=== PATIENT | male | born 1945 ===

== ENCOUNTER 2025-09-20 08:30 | Inpatient (IN) | payer OTHER ==
[~2025-09-20] VITALS: Ht 167.6 cm; Wt 67.1 kg
[2025-09-20] MEDS ORDERED: TRADJENTA5 MG (11:52)
[2025-09-20] MEDS ORDERED: CARVEDILOL ER40 MG (11:52)
[2025-09-26] MEDS ORDERED: HEMOSTATIC MATRIX 1 KIT KIT TOP ONE (09:46)
[2025-09-26] MEDS ORDERED: POVIDONE-IODINE 118 ML BOTT TOP ONE (09:46)
[2025-09-26] MEDS ORDERED: DIBUCAINE 30 GM TUBE ONE (09:46)
[2025-09-26] MEDS ORDERED: CEFTRIAXONE SODIUM 2,000 MG VIAL ONE (09:47)
[2025-09-26] MEDS ORDERED: LIDOCAINE HCL 1%/EPINEPHRINE 20ML VIAL IJ ONE (09:47)
[2025-09-26] MEDS ORDERED: BUPIVACAINE HCL/MPF 0.5% 30ML VIAL ONE (09:47)
[2025-09-26] MEDS ORDERED: METRONIDAZOLE/SODIUM CHLORIDE 500 MG/100 ML PIGGYBACK IV ONE ×2 (09:47→14:41)
[2025-09-26] MEDS ORDERED: CIPROFLOXACIN IN 5 % DEXTROSE 400 MG/200 ML PIGGYBAG IV SCH (11:17)
[2025-09-26] MEDS ORDERED: METRONIDAZOLE/SODIUM CHLORIDE 500 MG/100 ML PIGGYBACK IV SCH (11:17)
[2025-09-26] MEDS ORDERED: OxyCODONE HCL 5 MG TABLET (ROXICODONE) PO PRN (11:30)
[2025-09-26] MEDS ORDERED: 0.9 % SODIUM CHLORIDE 1,000 ML IV SCH (11:30)
[2025-09-26] MEDS ORDERED: ONDANSETRON HCL 2 MG/ML VIAL IV PRN (11:30)
[2025-09-26] MEDS ORDERED: DEXTROSE 50 % IN WATER 0.5 G/ML DISP.SYRIN IV PRN ×2 (11:30→13:30)
[2025-09-26] MEDS ORDERED: MORPHINE SULFATE 4 MG/ML VIAL IV PRN (11:30)
[2025-09-26] MEDS ORDERED: HYOSCYAMINE SULFATE 0.125 MG TAB.SUBL SL SCH (13:00)
[2025-09-26] MEDS ORDERED: INSULIN LISPRO 1,000 UNIT/10 ML UNITS SUBCUTANEO PRN (13:30)
[2025-09-26] MEDS ORDERED: hydrALAZINE HCL 20 MG VIAL IV PRN (13:30)
[2025-09-26] MEDS ORDERED: ACETAMINOPHEN 500 MG GEL..CAP PO SCH (14:00)
[2025-09-26] MEDS ORDERED: CIPROFLOXACIN IN 5 % DEXTROSE 400 MG/200 ML PIGGYBAG IV ONE (14:41)
[2025-09-26 15:00] VITALS: BP 139/93; O2SAT 98
[2025-09-26 15:29] LABS: BASO % 0.3 % (0.1-1.2); EOS # 0.04 (0.04-0.54); EOS % 1.0 % (0.7-7.0); LYMPH # 0.76 (1.18-3.74); LYMPH % 19.3 % (19.3-53.1); MEAN PLATELET VOLUME 12.00 fl (9.4-12.4); MONO # 0.35 (0.24-0.82); MONO % 8.9 % (4.7-12.5); NEUT # 2.76 (1.56-6.13); NEUT % 70.2 % (34.0-71.1); RED CELL DISTRIBUTION WIDTH 12.7 % (11.6-14.4)
[2025-09-26] MEDS ORDERED: INSULIN LISPRO 1,000 UNIT/10 ML UNITS SUBCUTANEO ONE (15:51)
[2025-09-26 15:56] LABS: BUN CREA RATIO 14.0 (7.0-25.0); CREATININE SERUM 1.9 mg/dL (0.70-1.30); GFR 34.28; OSMOLALITY SERUM 291.0 MOSM/KG (275-295)
[2025-09-26 16:03] LABS: GLUCOSE FASTING 254.0 mg/dL (65-100)
[2025-09-26] MEDS ORDERED: GABAPENTIN 300 MG CAPSULE PO SCH (17:00)
[2025-09-26] MEDS ORDERED: CARVEDILOL 25 MG TABLET PO SCH (21:00)
[2025-09-26] MEDS ORDERED: CELECOXIB 200 MG CAPSULE PO SCH (21:00)
[2025-09-26] MEDS ORDERED: FAMOTIDINE/PF 20 MG/2 ML VIAL IV PUSH SCH (21:00)
[2025-09-27 00:49] VITALS: BP 132/57; BP 142/88; O2SAT 96; O2SAT 98
[2025-09-27 06:52] LABS: BUN CREA RATIO 13.0 (7.0-25.0); CREATININE SERUM 2.02 mg/dL (0.70-1.30); GFR 31.94; GLUCOSE FASTING 146.0 mg/dL (65-100); OSMOLALITY SERUM 292.0 MOSM/KG (275-295)
[2025-09-27 07:26] LABS: BASO % 0.3 % (0.1-1.2); EOS # 0.07 (0.04-0.54); EOS % 1.0 % (0.7-7.0); LYMPH # 0.88 (1.18-3.74); LYMPH % 12.5 % (19.3-53.1); MEAN PLATELET VOLUME 12.10 fl (9.4-12.4); MONO # 0.94 (0.24-0.82); MONO % 13.3 % (4.7-12.5); NEUT # 5.12 (1.56-6.13); NEUT % 72.6 % (34.0-71.1); RED CELL DISTRIBUTION WIDTH 12.8 % (11.6-14.4)
[2025-09-27 08:30] VITALS: BP 125/55; O2SAT 96
[2025-09-27] MEDS ORDERED: RECTICARE30 GM TOP (12:20)
[2025-09-27] MEDS ORDERED: TRAM1TAB98 PO (12:20)
[2025-09-27] MEDS ORDERED: ENOXAPARIN SODIUM 40 MG/0.4 ML SYRINGE SUBCUTANEO SCH (17:00)
[2025-09-27] MEDS ORDERED: ENOXAPARIN SODIUM 30 MG/0.3 ML SYRINGE SUBCUTANEO SCH (17:00)
[2025-09-28] MEDS ORDERED: ENOXAPARIN SODIUM 30 MG/0.3 ML SYRINGE SUBCUTANEO SCH (09:00)
[2025-09-28] MEDS ORDERED: ENOXAPARIN SODIUM 40 MG/0.4 ML SYRINGE SUBCUTANEO SCH (09:00)
== END 2025-09-27 14:41 | disposition home or self-care (01) | DRG 376 ==
LOC: O/R 09-26 08:13 → SURH 09-26 08:30
PROVIDERS: ADMIT Surgery; ATTEND Surgery
PROC: 0DJD8ZZ Inspection of Lower Intestinal Tract, Via Natural or Artificial Opening Endoscopic (ICD-10-PCS; 2025-09-26)
PROC: 3E0T3BZ Introduction of Anesthetic Agent into Peripheral Nerves and Plexi, Percutaneous Approach (ICD-10-PCS; 2025-09-26)
PROC: 0DBP8ZZ Excision of Rectum, Via Natural or Artificial Opening Endoscopic (ICD-10-PCS; principal; 2025-09-26 12:30)
DX: C20 Malignant neoplasm of rectum (principal); R19.4 Change in bowel habit; I11.9 Hypertensive heart disease without heart failure; E11.9 Type 2 diabetes mellitus without complications; N18.9 Chronic kidney disease, unspecified; Z95.0 Presence of cardiac pacemaker; N40.0 Benign prostatic hyperplasia without lower urinary tract symptoms; D50.0 Iron deficiency anemia secondary to blood loss (chronic); I87.2 Venous insufficiency (chronic) (peripheral)
CPT/HCPCS: 0184T; 64430; 45300